=== PATIENT | female | born 1970 | race Caucasian/White ===

== ENCOUNTER → 2024-01-08 12:57 | Outpatient (CLI) | payer OTHER, SELFPAY ==
--- NOTE | ~2024-01-08 | XR_ITS ---
XR chest 2V Ordering provider: Destiny Mojica History: 53 years Female with . PERSISTENT COUGH AFTER ABX . Comparison: None. FINDINGS: MEDIASTINUM: The cardiac silhouette is not enlarged. LUNGS: No infiltrates, effusions or pneumothorax. OTHER: No free air under the diaphragm. Kyphosis with multilevel chronic compression.. IMPRESSION: No acute cardiopulmonary pathology. Reviewed, dictated and finalized at location [facility] [facility] [employer]
== END ==
LOC: EXPCRAD 13:05
DX: R05.9 Cough, unspecified (principal)
CPT/HCPCS: 71046